=== PATIENT | male | born 1995 | race Caucasian/White ===

== ENCOUNTER 2019-04-02 19:07 | Emergency (ER) | payer OTHER ==
[2019-04-02 19:53] VITALS: BP 126/82
--- NOTE | 2019-04-02 20:23 | UC ---
Ear Complaint HPI - HPI Summary HPI Summary: 24-year-old male presents with a 4 to five-day history of nasal congestion, runny nose, sore throat, and cough. States yesterday he was blowing his nose and he felt a pop in his right ear. He has been having persistent pain since that time. Today pain worsened and then subsided and patient noted some bloody discharge from the ear. States has some "muffled" hearing out of that ear. Denies fever, chills, vertigo, tinnitus, dysphagia, chest pain, shortness of breath, abdominal pain, nausea, or vomiting. - History of Current Complaint Chief Complaint: UCEar Stated Complaint: RIGHT EAR BLEEDING Time Seen by Provider: 04/02/19 20:07 Hx Obtained From: Patient Pain Intensity: 4 - Allergies/Home Medications Allergies/Adverse Reactions: Allergies Allergy/AdvReac Type Severity Reaction Status Date / Time latex Allergy Swelling Verified 04/02/19 19:53 Home Medications: Home Medications Ibuprofen TAB* [Motrin TAB* 600 MG] 600 mg PO Q8H PRN 04/02/19 [History Confirmed 04/02/19] PMH/Surg Hx/FS Hx/Imm Hx Previously Healthy: Yes - Denies significant PMH - Surgical History Surgery Procedure, Year, and Place: Facial Plastic Surgery s/p dog bite - Family History Known Family History: Positive: Non-Contributory - Social History Occupation: Employed Full-time Lives: Alone Alcohol Use: None Substance Use Type: None Smoking Status (MU): Never Smoked Tobacco Household Exposure Type: Cigarettes - Immunization History Most Recent Influenza Vaccination: Not the Season Vaccination Up to Date: Yes Review of Systems All Other Systems Reviewed And Are Negative: Yes Constitutional: Negative: Fever, Chills Skin: Positive: Negative Eyes: Negative: Drainage, Eye Redness ENT: Positive: Sore Throat, Ear Ache, Nasal Discharge, Sinus Congestion. Negative: Sinus Pain/Tenderness Respiratory: Positive: Cough. Negative: Shortness Of Breath Cardiovascular: Negative: Chest Pain Gastrointestinal: Negative: Abdominal Pain, Vomiting, Diarrhea, Nausea Genitourinary: Positive: Negative Musculoskeletal: Positive: Negative Neurological: Positive: Negative Is Patient Immunocompromised?: No Physical Exam - Summary Physical Exam Summary: GENERAL APPEARANCE: Well developed, well nourished, alert and cooperative, and appears to be in no acute distress. EYES: Conjunctiva clear. No drainage. EARS: Left external auditory canal clear. Left TM erythematous and dull. Right external auditory canal with bloody drainage partially obstructing full visualization of the TM however it is noted to be erythematous. NOSE: Moderate nasal congestion. No nasal discharge. THROAT: Pharyngeal cobblestoning. No tonsilar inflammation, swelling, exudate, or lesions. Uvula midline. NECK: Neck supple, non-tender without lymphadenopathy. CARDIAC: Normal S1 and S2. No S3, S4 or murmurs. Rhythm is regular. There is no peripheral edema, cyanosis or pallor. Extremities are warm and well perfused. Capillary refill is less than 2 seconds. Peripheral pulses intact. LUNGS: Clear to auscultation without rales, rhonchi, wheezing or diminished breath sounds. ABDOMEN: Positive bowel sounds. Soft, nondistended, nontender. No guarding or rebound. No masses or hepatosplenomegally. MUSKULOSKELETAL: ROM intact to all extremities. No joint erythema or tenderness. Normal muscular development. Normal gait. SKIN: Skin normal color, texture and turgor with no lesions or eruptions. Triage Information Reviewed: Yes Vital Signs: Initial Vital Signs Temp 98.5 F 04/02/19 19:49 Pulse 70 04/02/19 19:49 Resp 16 04/02/19 19:49 BP 126/82 04/02/19 19:49 Pulse Ox 99 04/02/19 19:49 Vital Signs Reviewed: Yes Ear Complaint Course/Dx - Course Course Of Treatment: 24-year-old male presents with a 4 to five-day history of nasal congestion, runny nose, sore throat, and cough. States yesterday he was blowing his nose and he felt a pop in his right ear. He has been having persistent pain since that time. Today pain worsened and then subsided and patient noted some bloody discharge from the ear. States has some "muffled" hearing out of that ear. Denies fever, chills, vertigo, tinnitus, dysphagia, chest pain, shortness of breath, abdominal pain, nausea, or vomiting. Afebrile. Vital signs stable. On exam patient was noted to have moderate nasal congestion, the left external auditory canal clear, left TM erythematous and dull, right external auditory canal with bloody drainage partially obstructing full visualization of the TM however it is noted to be erythematous, pharygeal cobblestoning without tonsillar swelling or exudate, no cervical lymphadenopathy, clear pleural breath sounds, and otherwise unremarkable exam. Discussed with the patient that his history and exam are consistent with an upper respiratory infection with bilateral otitis media and a likely ruptured right TM. Will start him on Augmentin 875 mg twice a day 10 days to treat for the bilateral ear infection and recommend symptomatic treatment of his URI symptoms. He is to return here or follow-up with a primary care provider in 3-5 days if symptoms are not improving. Anticipatory guidance warning symptoms were reviewed with the patient. Verbalizes understanding and agrees of care. - Differential Dx/Diagnosis Differential Diagnosis/HQI/PQRI: Cerumen Impaction, Foreign Body, Otitis Externa , Otitis Media, Perforated TM, Trauma, URI Provider Diagnosis: URI (upper respiratory infection), Bilateral otitis media, Rupture of right tympanic membrane due to otitis media Discharge ED - Sign-Out/Discharge Documenting (check all that apply): Patient Departure All imaging exams completed and their final reports reviewed: No Studies - Discharge Plan Condition: Stable Disposition: HOME Prescriptions: Amoxicillin/Clavulanate TAB* [Augmentin TAB 875*] 875 mg PO BID 10 Days #20 tab Patient Education Materials: Ruptured Eardrum (ED), Ear Infection (ED) Referrals: No Primary Care Phys,NOPCP [Primary Care Provider] - Additional Instructions: Your history and exam are consistent with an upper respiratory infection with ear infection of both ears. There is a possible rupture of the right ear drum from the infection. We will start you on an antibiotic to treat the infection. Start Augmentin 875 mg twice a day for 10 days. Take with food to avoid upset stomach. Be sure to take the entire course even if feeling better. Use an [id number] decongestant such as Sudafed according to directions to help with the nasal congestion. Take over the counter acetaminophen (Tylenol) or ibuprofen (Advil, Motrin) according to directions as needed for pain or fever. Use salt water gargles several times a day if you have a sore throat. You may also use Chloraseptic spray or Cepacol lonzenges according to directions which contain a numbing medication and can provide some temporary relief from your sore throat. You need to avoid getting water into the right ear. No swimming or diving. You may use a cotton ball with some petroleum jelly to create a barrier while showering. Return here or follow up with your primary care provider in 3-5 days if symptoms persist. Seek immediate medical attention in the emergency room if you have fever greater than 100.5 F despite taking acetaminophen or ibuprofen, severe headache , dizziness, loss of hearing, have chest pain, difficulty breathing, are unable to swallow, or have any worsening of symptoms. - Billing Disposition and Condition Condition: STABLE Disposition: Home
== END 2019-04-02 20:40 | disposition home or self-care (01) ==
LOC: UCCORT 19:07
DX: J06.9 Acute upper respiratory infection, unspecified (principal); H66.93 Otitis media, unspecified, bilateral; H72.91 Unspecified perforation of tympanic membrane, right ear; Z91.040 Latex allergy status
CPT/HCPCS: 99202; G0463

== ENCOUNTER 2019-08-14 17:34 | Emergency (ER) | payer OTHER ==
[2019-08-14 18:14] VITALS: BP 126/83
== END 2019-08-14 19:09 | disposition home or self-care (01) ==
LOC: UCCORT 17:34